=== PATIENT | female | born 1980 | race Caucasian/White ===

== ENCOUNTER 2016-09-25 21:13 | Emergency (ER) | payer OTHER ==
[~2016-09-25] VITALS: Ht 170.2 cm; Wt 100.6 kg
[~2016-09-25 21:13] MED LIST: ADVIL200 MG PO; ALBUTEROL SULF8.5 GM IH; ALBUTEROL17 G1 IH; ATARAX,VISTARIL50 MG PO; BENADRYL ALLERG25 MG PO; CEFADROXIL1 GM PO; CELEXA20 MG PO; CIPRO500 MG PO; CLONAZEPAM0.5 MG PO; CYCLOBENZAPRINE10 MG PO; ENDOCET 5-3251 EACH PO; EXTRA STRENGTH500 M1 PO; FIORICET,ESG1 TABLET PO; HYDROCODON-ACE1 EAC9 PO; KLONOPIN0.5 M1 PO; LEVAQUIN750 MG PO; METHADONE10 MG PO; MOTRIN400 MG PO; NAPROSYN500 MG PO; PANTOPRAZOLE SO40 MG PO; PREDNISONE10 MG PO; PREDNISONE20 MG PO; PROTONIX40 MG PO; TRAMADOL HCL50 MG PO; VENTOLIN HFA18 GM IH
[2016-09-25 21:14] VITALS: BP 128/78
[2016-09-25] MEDS ORDERED: ULTRAM50 MG PO (22:14)
[2016-09-25] MEDS ORDERED: MOTRIN800 MG PO (22:14)
== END 2016-09-25 22:42 | disposition home or self-care (01) ==
LOC: EME 21:13
DX: K08.89 Other specified disorders of teeth and supporting structures (principal); Z98.818 Other dental procedure status; F17.200 Nicotine dependence, unspecified, uncomplicated
CPT/HCPCS: 99281; 99284

== ENCOUNTER 2017-03-29 21:36 | Emergency (ER) | payer OTHER ==
[~2017-03-29] VITALS: Ht 170.2 cm; Wt 103.5 kg
[~2017-03-29 21:36] MED LIST changes: +MOTRIN800 MG PO; +ULTRAM50 MG PO
[2017-03-29 22:24] LABS: HEMATOCRIT 44.5 % (36.0-46.0); MCH 29.4 PG (29.0-34.0); MCHC 34.2 G/DL (30.0-36.0); MCV 86.1 FL (83-99); MEAN PLAT.VOLUME 11.6 uM^3 (9.5-12.4); PLATELET COUNT 195 K/uL (156-360); RBC DIS.WIDTH-CV 13.1 % (11.8-14.6); RBC DIS.WIDTH-SD 41.1 % (39-53); RED BLOOD COUNT 5.17 M/uL (3.80-5.20); WHITE BLOOD COUNT 7.9 K/uL (4.1-10.2)
[2017-03-29 22:37] LABS: CHLORIDE 103 mEq/L (99-109); POTASSIUM 3.9 mEq/L (3.7-5.4); SODIUM 136 mEq/L (136-147)
[2017-03-29 22:38] LABS: GLUCOSE 83 mg/dL (70-99)
[2017-03-29 22:40] LABS: ANION GAP 8 MEQ/L (2-14)
[2017-03-29 22:42] LABS: GFR ESTIMATE (CALCULATED) > 59 mL/min/
[2017-03-29 22:43] LABS: UREA NITROGEN (BUN) 9 mg/dL (9-23)
[2017-03-29 22:46] LABS: TROP-I INTERPRETATION NEGATIVE; TROPONIN-I < 0.01 ng/mL (0.0-0.30)
[2017-03-29 22:47] LABS: D-DIMER ELISA 0.33 mg/L FEU (< 0.57)
[2017-03-30 00:09] VITALS: BP 126/84
== END 2017-03-30 00:10 | disposition left against medical advice (07) ==
LOC: EME 21:36 → RME 21:36
DX: R07.9 Chest pain, unspecified (principal); F17.200 Nicotine dependence, unspecified, uncomplicated
CPT/HCPCS: 71020; 80048; 84484; 85027; 85379; 93005; 99281; 99284